=== PATIENT | male | born 1965 | race Caucasian/White ===

== ENCOUNTER 2024-11-22 13:45 | Inpatient (IN) | payer OTHER ==
[2024-11-22 15:32] VITALS: BMI 21.2
[2024-11-22] MEDS ORDERED: MAGNESIUM HYDROX 2400MG/30ML ORAL SUSPENSION 30 ML CUP PO PRN (15:53)
[2024-11-22] MEDS ORDERED: NICOTINE POLACRILEX 2 MG GUM BUC PRN (15:53)
[2024-11-22] MEDS ORDERED: MAG HYDROX/AL HYDROX/SIMETH 30 ML UNIT-DOSE CUP PO PRN (15:53)
[2024-11-22] MEDS ORDERED: BENZOCAINE/MENTHOL (CHLORASEPTIC ) LOZENGE MM PRN (15:53)
[2024-11-22] MEDS ORDERED: ONDANSETRON *ODT* 4 MG TABLET SL PRN (15:53)
[2024-11-22] MEDS ORDERED: BENZONATATE 200 MG CAPSULE PO PRN (15:53)
[2024-11-22] MEDS ORDERED: LOPERAMIDE HCL 2 MG CAPSULE PO PRN (15:53)
[2024-11-22] MEDS ORDERED: IBUPROFEN 400 MG TABLET (FP) PO PRN (15:53)
[2024-11-22] MEDS ORDERED: P-EPHED 60MG/TRIPROLIDI 2.5MG TABLET PO PRN (15:53)
[2024-11-22] MEDS ORDERED: NALOXONE (NARCAN) HCL 4 MG/0.1 ML SPRAY NS PRN (15:53)
[2024-11-22] MEDS ORDERED: POLYETHYLENE GLYCOL (HEALTHYLAX) 3350 17 GM PACKET PO PRN (15:53)
[2024-11-22] MEDS ORDERED: DICYCLOMINE HCL 10 MG CAPSULE PO PRN (15:53)
[2024-11-22] MEDS ORDERED: BISMUTH SUBSALICYLATE 524 MG/30 ML PO PRN (15:53)
[2024-11-22] MEDS ORDERED: NICOTINE POLACRILEX 2 MG LOZENGE BC PRN (15:53)
[2024-11-22] MEDS ORDERED: guaiFENesin 600 MG TABLET.ER (FP) PO PRN (15:53)
[2024-11-22] MEDS ORDERED: INSULIN (NOVOLOG) ASPART 100 UNITS/ML 10ML VIAL SQ ONE (20:20)
[2024-11-22] MEDS: INSULIN (NOVOLOG) ASPART 100 UNITS/ML 10ML VIAL SQ ONE (20:24)
[2024-11-22] MEDS: INSULIN ASPART SLIDING SCALE (NOVOLOG) 1 VIAL SQ SCH (20:31)
[2024-11-22] MEDS: THIAMINE 100 MG TABLET PO SCH (23:22)
[2024-11-22] MEDS: MELATONIN 5 MG TABLETS PO SCH (23:22)
[2024-11-23] MEDS ORDERED: INSULIN ASPART SLIDING SCALE (NOVOLOG) 1 VIAL SQ ONE ×4 (05:53→22:56)
[2024-11-23] MEDS: SULFAMETHOXAZOLE/TRIMETHOPRIM 800MG/160MG D.S. TABLET PO SCH (09:37)
[2024-11-23] MEDS: PRENATAL VITAMINS W/ FOLIC ACID TABLET (FP) PO SCH (09:37)
[2024-11-23] MEDS: IBUPROFEN 600 MG TABLET (FP) PO PRN (10:59)
[2024-11-23] MEDS ORDERED: PATIENT'S OWN MEDICATION (NON-FORMULARY) (Amlodipine Besylate/Benazepril [Amlodipine-Benaz PO SCH (14:30)
[2024-11-23] MEDS ORDERED: PATIENT'S OWN MEDICATION (NON-FORMULARY) (Clonidine Hcl [Clonidine Hcl] 0.2 MG Tablet) PO SCH (14:30)
[2024-11-23] MEDS: BICTEGRAV/EMTRICIT/TENOFOV (BIKTARVY) 50-200-25 MG TABLET PO SCH (15:07)
[2024-11-23] MEDS: amLODIPine BESYLATE 5 MG TABLET (FP) PO SCH (15:08)
[2024-11-23] MEDS: LISINOPRIL 20 MG TABLET PO SCH (15:10)
[2024-11-23 15:22] LABS: MCHC 30.4 g/dl (32.3-36.5); MEAN CELL VOLUME 79.0 fl (79.0-92.2); MEAN PLT VOLUME 9.3 fl (9.4-12.4); RDW 14.1 % (12.2-16.1)
[2024-11-23 16:00] LABS: GLUCOSE,RANDOM 277.0 mg/dL (74-106); TOT PROT 7.9 g/dl (6.4-8.2)
[2024-11-23 16:01] LABS: CO2 24.0 mmol/L (21-32)
[2024-11-23 16:03] LABS: ALK PHOS 159.0 U/L (40-150)
[2024-11-23 16:05] LABS: SGPT/ALT 22.0 U/L (0-55)
[2024-11-23 16:06] LABS: CREATININE 0.71 mg/dL (0.55-1.3); SGOT/AST 34.0 U/L (5-34)
[2024-11-23] MEDS: ATORVASTATIN CA 40 MG TABLET (FP) PO SCH (22:49)
[2024-11-24] MEDS: ACETAMINOPHEN 325 MG TABLET (FP) PO PRN (07:13)
[2024-11-24] MEDS: METHOCARBAMOL 500 MG TABLET PO PRN (09:30)
[2024-11-24] MEDS: IBUPROFEN 400 MG TABLET (FP) PO ONE (12:36)
[2024-11-24] MEDS: ACETAMINOPHEN 325 MG TABLET (FP) PO ONE (12:37)
[2024-11-24] MEDS: IBUPROFEN 600 MG TABLET (FP) PO SCH (14:00)
[2024-11-24] MEDS: ACETAMINOPHEN 325 MG TABLET (FP) PO SCH (14:00)
[2024-11-24] MEDS: SODIUM CHLORIDE 1 GM TABLET PO SCH (15:53)
[2024-11-24] MEDS ORDERED: INSULIN ASPART SLIDING SCALE (NOVOLOG) 1 VIAL SQ ONE ×2 (17:24→22:09)
[2024-11-24] MEDS: INSULIN ASPART SLIDING SCALE (NOVOLOG) 1 VIAL SQ SCH (17:25)
[2024-11-24] MEDS: INSULIN GLARGINE (LANTUS) 100 UNITS/ML UNITS SQ SCH (22:04)
[2024-11-25] MEDS: DOCUSATE SODIUM 100 MG CAPSULE (FP) PO SCH (09:41)
[2024-11-25] MEDS ORDERED: amLODIPine BESYLATE 10 MG TABLET (FP) PO SCH (13:15)
[2024-11-25] MEDS: ACETAMINOPHEN 325 MG TABLET (FP) PO SCH (14:50)
[2024-11-25] MEDS: IBUPROFEN 400 MG TABLET (FP) PO SCH (15:51)
[2024-11-25] MEDS ORDERED: INSULIN ASPART SLIDING SCALE (NOVOLOG) 1 VIAL SQ ONE ×3 (17:20→21:56)
[2024-11-26] MEDS ORDERED: INSULIN ASPART SLIDING SCALE (NOVOLOG) 1 VIAL SQ ONE (05:53)
[2024-11-26] MEDS: amLODIPine BESYLATE 10 MG TABLET (FP) PO SCH (09:17)
[2024-11-26] MEDS: PATIENT'S OWN MEDICATION (NON-FORMULARY) (Sitagliptin Phos/Metformin Hcl [Janumet 50-1,000 PO SCH (13:53)
[2024-11-26] MEDS: metFORMIN HCL 500 MG TABLET (FP) PO SCH (17:00)
[2024-11-27 09:08] VITALS: RESP 16
[2024-11-27] MEDS ORDERED: INSULIN ASPART SLIDING SCALE (NOVOLOG) 1 VIAL SQ ONE ×3 (12:08→22:51)
[2024-11-28] MEDS ORDERED: INSULIN ASPART SLIDING SCALE (NOVOLOG) 1 VIAL SQ ONE (11:14)
[2024-11-28 12:32] VITALS: BP 133/74; PULSE 95; TEMP 98.5
== END 2024-11-28 15:00 | disposition other institution (70) | DRG 773 ==
LOC: YASAS 13:45 → Y6N 11-23 02:07
PROVIDERS: ADMIT Allergy & Immunology; ATTEND Counselor Addiction (Substance Use Disorder)
PROC: HZ2ZZZZ Detoxification Services for Substance Abuse Treatment (ICD-10-PCS; principal; 2024-11-23)
DX: F11.20 Opioid dependence, uncomplicated (principal); F14.20 Cocaine dependence, uncomplicated; F10.20 Alcohol dependence, uncomplicated; Z21 Asymptomatic human immunodeficiency virus [HIV] infection status; E87.1 Hypo-osmolality and hyponatremia; E78.5 Hyperlipidemia, unspecified; I10 Essential (primary) hypertension; E11.9 Type 2 diabetes mellitus without complications; Z79.4 Long term (current) use of insulin; Z79.84 Long term (current) use of oral hypoglycemic drugs; L02.414 Cutaneous abscess of left upper limb; M54.50 Low back pain, unspecified; G89.29 Other chronic pain
CPT/HCPCS: 36415; 80053; 82962; 84295; 85027; 86780

== ENCOUNTER 2024-11-22 21:36 | Emergency (ER) | payer OTHER ==
[2024-11-22 22:10] VITALS: TEMP 98.1; BMI 22.6
[2024-11-22 23:28] LABS: MCHC 30.0 g/dl (32.3-36.5); MEAN CELL VOLUME 78.9 fl (79.0-92.2); MEAN PLT VOLUME 9.0 fl (9.4-12.4); RDW 13.9 % (12.2-16.1)
[2024-11-22 23:45] LABS: GLUCOSE,RANDOM 72.0 mg/dL (74-106); TOT PROT 9.4 g/dl (6.4-8.2)
[2024-11-22 23:46] LABS: CO2 27.0 mmol/L (21-32)
[2024-11-22 23:48] LABS: ALK PHOS 192.0 U/L (40-150)
[2024-11-22 23:50] LABS: SGOT/AST 31.0 U/L (5-34); SGPT/ALT 28.0 U/L (0-55)
[2024-11-22 23:51] LABS: CREATININE 0.66 mg/dL (0.55-1.3)
[2024-11-23] MEDS ORDERED: LIDOCAINE HCL 1%, 10 MG/ML (20ML VIAL) ONE (00:32)
[2024-11-23] MEDS: LIDOCAINE HCL 1%, 10 MG/ML (50 mL VIAL) SQ ONE (00:51)
[2024-11-23] MEDS ORDERED: SULFAMETHOXAZOLE/TRIMETHOPRIM 800MG/160MG D.S. TABLET ONE (01:14)
[2024-11-23] MEDS ORDERED: ACETAMINOPHEN 500 MG TABLET (FP) ONE (01:18)
[2024-11-23] MEDS: SULFAMETHOXAZOLE/TRIMETHOPRIM 800MG/160MG D.S. TABLET PO ONE (01:20)
[2024-11-23 01:22] VITALS: BP 171/68; PULSE 86; RESP 16
[2024-11-23 03:40] LABS: HCV DIAGNOSTIC IN-HOUSE W/RFLX REACTIVE (NONREACTIVE); HIV INTERPRETATION PRESUMPTIVE POSITIVE (NEGATIVE)
[2024-11-23 04:19] LABS: ERYTHROCYTE SEDIMENTATION RATE 64 mm/hr (0-20)
== END 2024-11-23 01:35 ==
LOC: JER 21:36
PROC: 0H9CXZZ Drainage of Left Upper Arm Skin, External Approach (ICD-10-PCS; principal; 2024-11-22)
DX: L02.414 Cutaneous abscess of left upper limb (principal); M25.522 Pain in left elbow; R50.9 Fever, unspecified
CPT/HCPCS: 36415; 73070-TC-LT-FY; 80053; 82962; 85025; 85651; 86140; 86803; 87070; 87205; 87389; 87522; 99283-25